=== PATIENT | female | born 1955 | race Caucasian/White ===

== ENCOUNTER 2020-08-29 22:46 | Inpatient (IN) | payer BC, OTHER ==
[~2020-08-29] VITALS: Ht 172.7 cm; Wt 122.5 kg
[2020-08-29 23:45] LABS: HEMOGLOBIN 13.2 gm/dl (12.3-15.3); RED BLOOD COUNT 4.29 M/UL (4.00-5.10); WHITE BLOOD COUNT 10.2 K/UL (4.5-11.0)
[2020-08-30 00:18] LABS: BUN/CREATININE RATIO 15 (0-10)
[2020-08-30] MEDS ORDERED: LEVOTHYROXINE88 MCG PO (10:18)
[2020-08-30] MEDS ORDERED: ALBUTEROL2.5 MG/3 M INH (10:18)
[2020-08-30] MEDS ORDERED: VITAMIN C1000 MG PO (10:19)
[2020-08-30] MEDS ORDERED: LORATADINE-D 21 EACH PO (10:19)
[2020-08-30] MEDS ORDERED: VITAMIN D3125 MC1 PO (10:20)
[2020-08-30] MEDS ORDERED: ZINC SULFATE220 M1 PO (10:32)
[2020-08-30] MEDS ORDERED: AZITHROMYCIN250 MG PO (10:32)
[2020-08-30] MEDS ORDERED: MEDROL DOSEPAK 24 MG PO (10:32)
[2020-08-31 06:38] LABS: HEMOGLOBIN 12.5 gm/dl (12.3-15.3); RED BLOOD COUNT 4.04 M/UL (4.00-5.10); WHITE BLOOD COUNT 8.4 K/UL (4.5-11.0)
[2020-08-31 07:22] LABS: BUN/CREATININE RATIO 21 (0-10)
[2020-09-01 07:00] LABS: HEMOGLOBIN 12.2 gm/dl (12.3-15.3); RED BLOOD COUNT 3.97 M/UL (4.00-5.10); WHITE BLOOD COUNT 8.2 K/UL (4.5-11.0)
[2020-09-01 07:50] LABS: BUN/CREATININE RATIO 26 (0-10)
[2020-09-02 03:21] LABS: HEMOGLOBIN 12.5 gm/dl (12.3-15.3); RED BLOOD COUNT 4.04 M/UL (4.00-5.10); WHITE BLOOD COUNT 8.9 K/UL (4.5-11.0)
[2020-09-02 04:01] LABS: BUN/CREATININE RATIO 30 (0-10)
[2020-09-03 05:38] LABS: HEMOGLOBIN 12.5 gm/dl (12.3-15.3); RED BLOOD COUNT 4.07 M/UL (4.00-5.10); WHITE BLOOD COUNT 9.4 K/UL (4.5-11.0)
[2020-09-03 05:55] LABS: BUN/CREATININE RATIO 25 (0-10)
[2020-09-03] MEDS ORDERED: IPRAT-ALBUT 0.5-3 ML NEB (12:54)
[2020-09-03] MEDS ORDERED: BUDESONIDE0.5 MG/2 M INH (12:54)
[2020-09-03] MEDS ORDERED: DECADRON6 MG PO (12:54)
--- NOTE | 2020-09-03 13:44 | NUR ---
PATIENT SATS 85% ON ROOM AIR ON REST
== END 2020-09-03 18:32 | disposition home or self-care (01) | DRG 177 ==
LOC: ER1 22:46 → CDU 08-30 02:37 → MED SURG 4 08-30 02:37
PROVIDERS: Internal Medicine; ADMIT Internal Medicine
PROC: 8E0ZXY6 Isolation (ICD-10-PCS; principal; 2020-08-30)
PROC: XW033E5 Introduction of Remdesivir Anti-infective into Peripheral Vein, Percutaneous Approach, New Technology Group 5 (ICD-10-PCS; 2020-08-30)
PROC: XW13325 Transfusion of Convalescent Plasma (Nonautologous) into Peripheral Vein, Percutaneous Approach, New Technology Group 5 (ICD-10-PCS; 2020-09-01)
DX: U07.1 COVID-19 (principal); J12.82 Pneumonia due to coronavirus disease 2019; J96.91 Respiratory failure, unspecified with hypoxia; Z68.41 Body mass index [BMI] 40.0-44.9, adult; M62.82 Rhabdomyolysis; E03.9 Hypothyroidism, unspecified; Z90.710 Acquired absence of both cervix and uterus; E66.01 Morbid (severe) obesity due to excess calories
CPT/HCPCS: 36415; 36600; 71045; 80053; 82550; 82553; 82728; 82803; 83605; 83874; 83880; 84484; 85025; 85379; 86140; 86900; 86901; 86927; 87040; 93005; 94640; 94664; 94760; 96365; 96366; 96367; 96375; 96376; 99285; J0696; J1100; J1650; J7030

== ENCOUNTER 2020-09-16 06:50 | Emergency (ER) | payer BC, OTHER ==
[~2020-09-16 06:50] MED LIST: ALBUTEROL2.5 MG/3 M INH; AZITHROMYCIN250 MG PO; BUDESONIDE0.5 MG/2 M INH; DECADRON6 MG PO; IPRAT-ALBUT 0.5-3 ML NEB; LEVOTHYROXINE88 MCG PO; LORATADINE-D 21 EACH PO; MEDROL DOSEPAK 24 MG PO; VITAMIN C1000 MG PO; VITAMIN D3125 MC1 PO; ZINC SULFATE220 M1 PO
== END 2020-09-16 08:15 | disposition home or self-care (01) ==
LOC: ER1 06:50
DX: R22.41 Localized swelling, mass and lump, right lower limb (principal); Z86.16 Personal history of COVID-19
CPT/HCPCS: 96372; 99283; J1650

== ENCOUNTER → 2020-09-17 | Outpatient (CLI) | payer BC, OTHER | LOC: EXRD 11:22 | DX: R22.42 Localized swelling, mass and lump, left lower limb (principal); I82.4Z1 Acute embolism and thrombosis of unspecified deep veins of right distal lower extremity | CPT/HCPCS: 93971 ==

== ENCOUNTER → 2020-09-19 | Outpatient (CLI) | payer BC, OTHER | LOC: RAD 15:53 → EDSTATUS 16:08 | DX: Z09 Encounter for follow-up examination after completed treatment for conditions other than malignant neoplasm (principal); Z86.16 Personal history of COVID-19 | CPT/HCPCS: 71046 ==